=== PATIENT | male | born 2005 | race African-American/Black ===

== ENCOUNTER 2024-05-04 11:08 | Emergency (ER) | payer BC ==
[~2024-05-04] VITALS: Ht 175.3 cm; Wt 65.8 kg
[2024-05-04] MEDS ORDERED: IBUPROFEN600 MG PO (11:53)
[2024-05-04 12:12] VITALS: PULSE 55; RESP 16; TEMP 98.6; O2SAT 99
== END 2024-05-04 12:12 | disposition home or self-care (01) ==
LOC: FSED 11:18
DX: N48.89 Other specified disorders of penis (principal); R10.30 Lower abdominal pain, unspecified
CPT/HCPCS: 81003; 99283